=== PATIENT | male | born 1980 | race Caucasian/White ===

== ENCOUNTER → 2018-07-07 08:00 | Oncology outpatient (ONC) | payer OTHER, SELFPAY ==
--- NOTE | 2018-07-07 08:56 | ONC.CONS ---
History of Present Illness - Data of Consult Consult date: 07/07/18 Requesting Physician: Mary Castro - Consult Narrative Narrative: Diagnosis: History of embynal cell carcinoma of the testis Previous treatment: 1. Orchiectomy in 2001 or 2002 2. Retroperitoneal lymph node dissection. History of present illness: The patient is a 38-year-old man who is referred for follow-up of distant history of testicular cancer. The patient reports that he had noticed that the right testicle is slightly larger than the left. He was having a a routine physical done and the abnormality was noted. He had an ultrasound done followed by an orchiectomy. He then had a retroperitoneal lymph node dissection. He thinks that the nodes may have been involved. He did not have any radiation or chemotherapy. He was followed expectantly and has done well since then. He now is 15 or 16 years out from his treatment. Today, he feels well. He has some minor shoulder pain. He denies any other aches or pains. He denies any fevers chills or night sweats. His appetite has been good. He has not been losing any weight. He denies any shortness of breath cough for chest pain. He has been bothered by a some diarrhea alternating with constipation has been told that he might have irritable bowel syndrome. He denies any urinary complaints. He has not noted any masses in the opposite testicle. He has not noted any adenopathy. His past medical history is otherwise notable for prior surgery for a ganglion cyst on his wrist. He has had nasal septoplasty. He does have some environmental allergens. He did have some GI bleeding while on minocycline but his stopped since then. His current medications include Claritin and Flonase. He reports an allergy to minocycline. Family history is notable for grandfather with prostate cancer who grandmother with skin cancer and another grandfather with throat cancer. Social history: He is . 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 He does not smoke but does vapor. He has occasional alcohol use. CC: Red Slater MD Review of Systems Constitutional: weight gain, normal exercise tolerance Gastrointestinal: constipation, diarrhea Exam - Constitutional positive no acute distress, positive average body habitus - Routine HEENT Exam Head: Present: normocephalic, atraumatic Eye: Present: EOMI, PERRL. Absent: conjunctival icterus, scleral injection ENT: Present: mucous membranes moist, oropharynx clear - Routine Neck Exam Present: supple. Absent: lymphadenopathy, thyromegaly - Routine Respiratory Exam Present: Clear to auscultation bilaterally. Absent: rales, wheezes - Routine Cardiovascular Exam Present: RRR, S1, S2. Absent: murmur - Routine Abdominal Exam Present: soft, normoactive bowel sounds. Absent: tenderness, organomegaly, mass - Routine Extremities Exam Absent: cyanosis, clubbing, edema - Routine Skin Exam Present: intact, rash. Absent: petechiae Comments: He does have a mild erythematous rash on his face on the corners of the mouth in the nasal labial fold. - Routine Neurological Exam Present: alert, oriented X3 - Routine Psychiatric Exam Present: normal affect, normal thought process Results - Imaging CT scan - abdomen: report reviewed CT scan - chest: report reviewed CT scan - pelvis: report reviewed (A CT scan in March did not show any evidence of metastatic or recurrent disease. He did have some clips in the retroperitoneum consistent with previous retroperitoneal lymph node dissection.) Assessment and Plan (1) H/O testicular cancer Current visit: Yes Status: Acute A 38-year-old man who is now 15 or 16 years out from therapy for testicular cancer. He has no evidence of recurrence and no symptoms related to this. He did not have radiation or chemotherapy and therefore not be at risk for long-term complications from those. Currently, NCCN guidelines do not recommend any specific follow-up for testicular cancer beyond 5 years. I think the likelihood of recurrence at this point is nearly 0. I do not think that any specific follow-up is needed. Patients who have had testicular cancer are risk for development of 2nd primaries. That risk is approximately 1%. I did recommend that he perform self-exam occasionally. He was worried somewhat about his family history for cancer. There does not seem to be a strong history for anyone particular type of cancer. I think only routine cancer screening is needed. I did advise him to stop taping if he could. He should have a colonoscopy starting at age 50. He could start sooner if he develops any recurrent bleeding or other symptoms. I have not scheduled a follow-up for him but would be happy see him again in the future should new questions or problems arise.
[2018-07-07 09:50] VITALS: BP 130/87; PULSE 77; RESP 18; TEMP 37.2; O2SAT 97
--- NOTE | 2018-07-07 15:36 | ONC.NAV ---
Description: New Pt Intro Activity: Met with pt briefly prior to his consult visit with Dr. Slater. Introduced myself as the Pt [facility], offered services card, and established initial rapport. He identifies not needs or concerns at this time. Encouraged him to contact me should he have need for assistance in the future.
== END ==
DX: Z08 Encounter for follow-up examination after completed treatment for malignant neoplasm (principal); Z85.47 Personal history of malignant neoplasm of testis
CPT/HCPCS: 99204; 99214